=== PATIENT | female | born 2000 | race Two or more races ===

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

== ENCOUNTER 2020-04-09 16:05 | Emergency (ER) | payer MEDICAID ==
[~2020-04-09] VITALS: Ht 180.3 cm; Wt 136.1 kg
[2020-04-09 21:25] VITALS: BP 139/80
== END 2020-04-09 22:04 | disposition home or self-care (01) ==
LOC: ER 16:05
DX: S13.9XXA Sprain of joints and ligaments of unspecified parts of neck, initial encounter (principal); S63.502A Unspecified sprain of left wrist, initial encounter; R07.89 Other chest pain; V43.52XA Car driver injured in collision with other type car in traffic accident, initial encounter; Y93.89 Activity, other specified; Y92.488 Other paved roadways as the place of occurrence of the external cause; Y99.8 Other external cause status
CPT/HCPCS: 72040; 73110

== ENCOUNTER 2021-06-05 14:12 | Emergency (ER) | payer MEDICAID ==
[~2021-06-05] VITALS: Ht 180.3 cm; Wt 136.1 kg
[2021-06-05 16:19] VITALS: BP 152/101
[2021-06-05] MEDS ORDERED: IBUP800T27 PO (16:22)
[2021-06-05] MEDS ORDERED: METH750T22 PO (16:22)
== END 2021-06-05 16:24 | disposition home or self-care (01) ==
LOC: ER 14:12
DX: S39.012A Strain of muscle, fascia and tendon of lower back, initial encounter (principal); X58.XXXA Exposure to other specified factors, initial encounter; Y93.89 Activity, other specified; Y92.89 Other specified places as the place of occurrence of the external cause; Y99.8 Other external cause status

== ENCOUNTER 2024-06-15 19:30 | Emergency (ER) | payer MEDICAID ==
[~2024-06-15] VITALS: Ht 180.3 cm; Wt 172.6 kg
[~2024-06-15 19:30] MED LIST: IBUP-1456 PO; METH-1182 PO
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
[2024-06-15] MEDS ORDERED: ACET500T58 PO (20:14)
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
[2024-06-15] MEDS: ACETAMINOPHEN/CODEINE#3 (300/30mg) TAB PO ONE (20:39)
[2024-06-15] MEDS: ONDANSETRON ODT 4 MG TAB PO ONE (20:39)
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
[2024-06-15 22:34] VITALS: BP 158/93; PULSE 100; RESP 18; TEMP 98.4; O2SAT 98
== END 2024-06-15 22:36 | disposition home or self-care (01) ==
LOC: ER 19:30
DX: S39.012A Strain of muscle, fascia and tendon of lower back, initial encounter (principal); S40.012A Contusion of left shoulder, initial encounter; S20.219A Contusion of unspecified front wall of thorax, initial encounter; Z79.899 Other long term (current) drug therapy; V43.52XA Car driver injured in collision with other type car in traffic accident, initial encounter; Y93.I9 Activity, other involving external motion; Y92.89 Other specified places as the place of occurrence of the external cause; Y99.8 Other external cause status
CPT/HCPCS: 71046; 72100; 73030; 99284; Q0162